=== PATIENT | female | born 1955 | race Caucasian/White ===

== ENCOUNTER 2016-10-04 08:10 | Inpatient (IN) | payer OTHER ==
[~2016-10-04] VITALS: Ht 172.7 cm; Wt 90.2 kg
[2016-10-04] VITALS (11 sets, daily range): BP systolic 48–205; BP diastolic 31–128
[2016-10-04 08:47] LABS: BASOPHIL % 0.2 % (0-2); PLATELET COUNT 172 x10^3mcL (130-400); RED CELL DISTRIBUTION WIDTH 13.9 % (11.5-14.5)
[2016-10-04 08:54] LABS: CALCIUM 8.1 mg/dL (8.5-10.1); CARBON DIOXIDE 21.1 mmol/L (21-32); CHLORIDE SERUM 109 mmol/L (98-107); CREATININE SERUM 1.3 mg/dL (0.6-1.0); GFR1 44 mL/min; GLUCOSE SERUM 198 mg/dL (74-106); POTASSIUM SERUM 3.5 mmol/L (3.5-5.1); SODIUM SERUM 145 mmol/L (136-145)
[2016-10-04 09:05] LABS: CK-MB 1.6 ng/mL (0-3.6); T3 TOTAL 0.78 ng/mL
[2016-10-04 09:09] LABS: FREE T4 0.78 ng/dL (0.76-1.46); FREE THYROXINE INDEX 1.8 ug/dL (1.4-4.5); T4(THYROXINE) 4.9 ug/dL (4.7-13.3)
[2016-10-04 09:10] LABS: microscopic required? YES; urine erythrocyte 1+ (NEGATIVE)
[2016-10-04 09:12] LABS: ALKALINE PHOSPHATASE 66 U/L (46-116); ALT/SGPT 36 U/L (14-59); AST/SGOT 47 U/L (15-37); BILIRUBIN TOTAL 0.26 mg/dL (0.20-1.00); TOTAL PROTEIN, SERUM 6.4 g/dL (6.4-8.2)
[2016-10-04 09:17] LABS: C REACTIVE PROTEIN < 0.2 mg/dL (<=0.9)
[2016-10-04 09:49] LABS: AMPHETAMINE QUAL UR NONE DETECTED (NEG <=1000)
[2016-10-04 09:54] LABS: CHOLESTEROL/HDL RATIO 3.4
[2016-10-04 12:11] LABS: ERYTHROCYTE SED RATE 10 mm/hr (0-30)
[2016-10-05] VITALS (18 sets, daily range): BP systolic 82–158; BP diastolic 50–100
[2016-10-05 05:38] LABS: CALCIUM 7.6 mg/dL (8.5-10.1); CARBON DIOXIDE 20.9 mmol/L (21-32); CREATININE SERUM 1.5 mg/dL (0.6-1.0); MAGNESIUM 1.9 mg/dL (1.8-2.4); POTASSIUM SERUM 4.1 mmol/L (3.5-5.1)
[2016-10-05 05:42] LABS: BASOPHIL % 0.3 % (0-2); RED CELL DISTRIBUTION WIDTH 13.8 % (11.5-14.5)
[2016-10-05 05:58] LABS: PLATELET COUNT 98 x10^3mcL (130-400)
[2016-10-06] VITALS (16 sets, daily range): BP systolic 68–96; BP diastolic 42–64; Ht 172.7 cm; Wt 90.2 kg
[2016-10-06 05:31] LABS: BASOPHIL % 0.3 % (0-2); RED CELL DISTRIBUTION WIDTH 14.3 % (11.5-14.5)
[2016-10-06 05:35] LABS: PLATELET COUNT 77 x10^3mcL (130-400)
[2016-10-06 05:47] LABS: CALCIUM 7.6 mg/dL (8.5-10.1); CARBON DIOXIDE 19.9 mmol/L (21-32); CREATININE SERUM 1.8 mg/dL (0.6-1.0); MAGNESIUM 1.6 mg/dL (1.8-2.4); PHOSPHOROUS 4.6 mg/dL (2.5-4.9); POTASSIUM SERUM 3.4 mmol/L (3.5-5.1)
[2016-10-07] VITALS (19 sets, daily range): BP systolic 80–119; BP diastolic 42–70
[2016-10-07 05:34] LABS: BASOPHIL % 0.4 % (0-2); RED CELL DISTRIBUTION WIDTH 13.9 % (11.5-14.5)
[2016-10-07 05:44] LABS: PLATELET COUNT 53 x10^3mcL (130-400)
[2016-10-07 06:55] LABS: CALCIUM 8.2 mg/dL (8.5-10.1); CARBON DIOXIDE 16.2 mmol/L (21-32); CREATININE SERUM 2.7 mg/dL (0.6-1.0); PHOSPHOROUS 5.9 mg/dL (2.5-4.9); POTASSIUM SERUM 4.2 mmol/L (3.5-5.1)
[2016-10-08] VITALS (10 sets, daily range): BP systolic 84–112; BP diastolic 46–66
[2016-10-08 05:51] LABS: BASOPHIL % 0.4 % (0-2); RED CELL DISTRIBUTION WIDTH 14.1 % (11.5-14.5)
[2016-10-08 05:55] LABS: PLATELET COUNT 35 x10^3mcL (130-400)
[2016-10-08 06:12] LABS: CALCIUM 8.3 mg/dL (8.5-10.1); CARBON DIOXIDE 17.1 mmol/L (21-32); CREATININE SERUM 2.6 mg/dL (0.6-1.0); MAGNESIUM 1.8 mg/dL (1.8-2.4); PHOSPHOROUS 6.2 mg/dL (2.5-4.9); POTASSIUM SERUM 4.2 mmol/L (3.5-5.1)
== END 2016-10-08 14:35 | disposition expired | DRG 130 ==
LOC: ED 08:10 → IC 09:26
PROVIDERS: Family Medicine; Specialist; ADMIT Family Medicine
PROC: 05HM33Z Insertion of Infusion Device into Right Internal Jugular Vein, Percutaneous Approach (ICD-10-PCS; principal; 2016-10-04)
PROC: 5A1955Z Respiratory Ventilation, Greater than 96 Consecutive Hours (ICD-10-PCS; 2016-10-04)
PROC: B543ZZA Ultrasonography of Right Jugular Veins, Guidance (ICD-10-PCS; 2016-10-04)
DX: J96.02 Acute respiratory failure with hypercapnia (principal); I60.9 Nontraumatic subarachnoid hemorrhage, unspecified; N17.0 Acute kidney failure with tubular necrosis; R57.1 Hypovolemic shock; I50.43 Acute on chronic combined systolic (congestive) and diastolic (congestive) heart failure; E83.42 Hypomagnesemia; D69.6 Thrombocytopenia, unspecified; E44.0 Moderate protein-calorie malnutrition; E83.39 Other disorders of phosphorus metabolism; R73.03 Prediabetes; Z68.30 Body mass index [BMI] 30.0-30.9, adult; Z86.73 Personal history of transient ischemic attack (TIA), and cerebral infarction without residual deficits; E87.0 Hyperosmolality and hypernatremia; E87.6 Hypokalemia; E78.5 Hyperlipidemia, unspecified
CPT/HCPCS: 36556; 36600; 80307; 82962; 83880; 84439; A4628; G0480; J1642; J1956; J2370; J3475; J3480; J3490; J7030; J7040; J7042; J7620; J7633; Q0092